=== PATIENT | male | born 1975 | race Caucasian/White ===

== ENCOUNTER 2016-12-18 06:33 | Emergency (ER) | payer SELFPAY ==
[2016-12-18] MEDS ORDERED: Pseudoephedrine 30 MG Tab PO ONE (07:18)
--- NOTE | 2016-12-18 07:22 | EDM.PDOC ---
ED HPI GENERAL MEDICAL PROBLEM - General Chief Complaint: ENT Problem Stated Complaint: EAR PAIN Time Seen by Provider: 12/18/16 07:17 Source of Information: Reports: Patient History Limitations: Reports: No Limitations - History of Present Illness INITIAL COMMENTS - FREE TEXT/NARRATIVE: Feeling at times as if there is water in his ear. Pain is sharp and stabbing intermittently but has a constant ear pressure discomfort as well,and feels partially plugged. He can't lay down to sleep on that side either. He is nose is partially plugged up he is having intermittent nosebleeds as well. No known barotrauma to the ear. He thought it would get better over time but it's been 6 weeks and it has not improved. No previous ear surgery. Onset: Gradual Onset Date: 11/03/16 Duration: Week(s):, Getting Worse Location: Reports: Face (Right ear) Quality: Reports: Ache, Pressure, Sharp, Stabbing Severity: Moderate Improves with: Reports: None Worsens with: Reports: Other Context: Denies: Activity (Lying down.), Exercise, Lifting, Sick Contact, Trauma , Other Associated Symptoms: Reports: Other (Mild sinus congestion with nosebleed from left naris this morning.). 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) Right Ear Pain Score (Numeric/FACES): 8 - Related Data Allergies Allergy/AdvReac Type Severity Reaction Status Date / Time No Known Allergies Allergy Verified 12/18/16 06:42 Home Meds: Home Meds Amoxicillin/Clavulanate K [Augmentin 500 MG\125 MG] 1 tab PO Q12HR #20 tablet [Rx] Back Inflammation Med 0 mg PO DAILY PRN 12/18/16 [History] Htn Med 0 mg PO DAILY 12/18/16 [History] Hydrocort/Neomycin/Polymyxin B [Cortisporin Otic Susp] 2 drop EARRT ASDIRECTED # 1 bottle 12/18/16 [Rx] Loratadine/Pseudoephedrine [Claritin-D 24 Hour Tablet] 1 each PO DAILY #5 tab.er.24h 12/18/16 [Rx] Past Medical History - Past Health History Medical/Surgical History: Denies Medical/Surgical History Cardiovascular History: Reports: Hypertension Musculoskeletal History: Reports: Back Pain, Chronic Social & Family History - Tobacco Use Smoking Status *Q: Current Every Day Smoker Years of Tobacco use: 20 Packs/Tins Daily: 1 - Alcohol Use Days Per Week of Alcohol Use: 7 Number of Drinks Per Day: 2 Total Drinks Per Week: 14 - Recreational Drug Use Recreational Drug Use: No - Living Situation & Occupation Living situation: Reports: Occupation: Employed ED ROS ENT - Review of Systems Review Of Systems: See Below Constitutional: Denies: Fever, Chills, Malaise, Weakness, Fatigue, Decreased Appetite, Weight Loss HEENT: Reports: Ear Pain (Right ear), Sinus Problem Respiratory: Reports: No Symptoms Cardiovascular: Reports: No Symptoms, Blood Pressure Problem (Reports that he doesn't take his blood pressure medication as prescribed. BP is on the very high this morning at 180 05/02/12.) Endocrine: Reports: No Symptoms GI/Abdominal: Reports: No Symptoms : Reports: No Symptoms Musculoskeletal: Reports: No Symptoms, Muscle Pain Skin: Reports: No Symptoms Neurological: Reports: No Symptoms Psychiatric: Reports: No Symptoms Hematologic/Lymphatic: Reports: No Symptoms Immunologic: Reports: No Symptoms ED EXAM, ENT - Physical Exam Exam: See Below Exam Limited By: No Limitations General Appearance: Alert, WD/WN, Mild Distress Ears: Normal External Exam, Hearing Loss, Auricular Tenderness (Right side mild side), Canal Swelling, TM Bulging, TM Dullness, TM Fluid. No: Normal Canal, Mastoid Tenderness, Cerumen Impaction Nose: Dried Blood. No: Septal Performation (Both nasal septum is worse on the left as compared to the right.) Mouth/Throat: Normal Inspection, Normal Gums, Normal Lips, Normal Teeth Course - Vital Signs Last Recorded V/S: Last Vital Signs Temp 36.6 C 12/18/16 06:40 Pulse 102 H 12/18/16 06:40 Resp 16 12/18/16 06:40 BP 183/113 H 12/18/16 06:40 Pulse Ox 95 12/18/16 06:40 - Orders/Labs/Meds Meds: Medications Discontinued Medications Generic Name Dose Route Start Last Admin Trade Name Freq PRN Reason Stop Dose Admin Pseudoephedrine HCl 30 mg 12/18/16 07:18 Sudogest PO 12/18/16 07:19 ONETIME ONE - Radiology Interpretation Free Text/Narrative:: 41-year-old male presents the ED with right ear pain and sense of fullness off and on for the last 6 weeks. On examination I could pull in his ear lobe and portion of the tragus without any pain. However on inspection there is marked inflammation of the right ear canal I otitis externa. The eardrum shows a large bleb with middle ear fluid. Plan he'll be treated with Claritin-D 24-hour release once daily every morning. Should not aggravate his blood pressure very much. I was going to give him pseudoephedrine in the ED but canceled the order because his blood pressure so high. Placed on Augmentin 500 mg/125 mg twice daily for the next 10 days to clear up infection both the ear canal and hopefully help with the middle ear. Cortisporin optic drops to the ear 2 drops every 3 hours today and tomorrow and then 4 times daily for another week clear up ear infection. Motrin 600 mg every 6 hours as needed for pain relief. Departure - Departure Time of Disposition: 07:19 Disposition: Home, Self-Care 01 Condition: Fair Clinical Impression: Otitis externa Qualifiers: Otitis externa type: unspecified type Chronicity: acute Laterality: right Qualified Code(s): H60.501 - Unspecified acute noninfective otitis externa, right ear Eustachian tube obstruction Qualifiers: Laterality: right Qualified Code(s): H68.101 - Unspecified obstruction of Eustachian tube, right ear - Discharge Information Prescriptions: Amoxicillin/Clavulanate K [Augmentin 500 MG\125 MG] 1 tab PO Q12HR #20 tablet Hydrocort/Neomycin/Polymyxin B [Cortisporin Otic Susp] 2 drop EARRT ASDIRECTED # 1 bottle Loratadine/Pseudoephedrine [Claritin-D 24 Hour Tablet] 1 each PO DAILY #5 tab.er.24h Instructions: Otitis Externa, [id number] Referrals: Mago Hackett, [employer] [Primary Care Provider] - Forms: ED Department Discharge Additional Instructions: Evaluation in the ED this am due to Rt ear fullness with mild vertigo or sense of being off balance. Intermittent Rt ear pain. Exam reveals inflamation of the Rt ear canal called otitis externa and middle ear fluid due to obstruction of the drainage from the eustachain tube. Treatment is to be antibiotic Augmentin 500mg twice daily for the enxt 10 days. Claritin D- 24 hr release for the next 5 days once every am. Ear drops to be cortisporin --2 drops to the Rt ear every 4hrs while awake for the neext 3 days then x daily for another 7 days. Suggest follow up with personal physcian or ENT doctor in about 3 weeks time.
== END 2016-12-18 07:34 | disposition home or self-care (01) ==
LOC: JD.ED 06:33
DX: H68.101 Unspecified obstruction of Eustachian tube, right ear (principal); H60.501 Unspecified acute noninfective otitis externa, right ear; I10 Essential (primary) hypertension; F17.210 Nicotine dependence, cigarettes, uncomplicated; Z79.899 Other long term (current) drug therapy
CPT/HCPCS: 99283

== ENCOUNTER 2019-05-10 16:20 | Emergency (ER) | payer BC, OTHER ==
[2019-05-10] MEDS ORDERED: Oxymetazoline 0.05% Nasal Spray 30 ML Bottle NAS ONE (16:54)
[2019-05-10] MEDS ORDERED: Ondansetron 4 MG Tab.DIS PO ONE (16:59)
[2019-05-10] MEDS ORDERED: LORazepam 1 MG Tab PO ONE (16:59)
--- NOTE | 2019-05-10 17:01 | EDM.PDOC ---
ED HPI GENERAL MEDICAL PROBLEM - General Chief Complaint: ENT Problem Stated Complaint: NOSE BLEED AND VOMITING BLOOD Time Seen by Provider: 05/10/19 16:46 Source of Information: Reports: Patient, RN Notes Reviewed - History of Present Illness INITIAL COMMENTS - FREE TEXT/NARRATIVE: 3-year-old male comes in with left-sided nosebleed. Did many hours ago earlier today and has continued much of the day. At times he does get some overflow drainage from the right. He also was having some right-sided nosebleed difficulties yesterday. Not been recently ill. He is insulin-dependent diabetic. He does have history of hypertension and does take daily aspirin. - Related Data Allergies Allergy/AdvReac Type Severity Reaction Status Date / Time No Known Allergies Allergy Verified 10/14/18 17:24 Home Meds: Home Meds Aspirin 162 mg PO DAILY #30 tab.chew 10/15/18 [Rx] Cholecalciferol (Vitamin D3) [Vitamin D3] 5,000 unit PO DAILY #30 tablet [Rx] Past Medical History - Past Health History Medical/Surgical History: Denies Medical/Surgical History Cardiovascular History: Reports: Hypertension Musculoskeletal History: Reports: Back Pain, Chronic Psychiatric History: Reports: Depression - Infectious Disease History Infectious Disease History: Reports: Chicken Pox Social & Family History - Family History Family Medical History: Noncontributory - Tobacco Use Smoking Status *Q: Current Every Day Smoker Years of Tobacco use: 25 Packs/Tins Daily: 2 - Caffeine Use Caffeine Use: Reports: None - Recreational Drug Use Recreational Drug Use: No - Living Situation & Occupation Living situation: Reports: Occupation: Employed ED ROS ENT - Review of Systems Review Of Systems: See Below Constitutional: Denies: Fever, Chills HEENT: Reports: Nosebleed Respiratory: Denies: Shortness of Breath Cardiovascular: Denies: Chest Pain GI/Abdominal: Reports: Nausea. Denies: Abdominal Pain, Vomiting Musculoskeletal: Reports: No Symptoms Skin: Reports: No Symptoms Neurological: Reports: No Symptoms ED EXAM, ENT - Physical Exam Exam: See Below General Appearance: Alert, Anxious, Moderate Distress Nose: Active Bleeding (Left nares with posterior drainage) Mouth/Throat: Other (Posterior throat) Head: Atraumatic Neck: Supple Respiratory/Chest: No Respiratory Distress, Lungs Clear, Normal Breath Sounds Cardiovascular: Tachycardia Neurological: Alert, Oriented, No Motor/Sensory Deficits Skin: Warm, Dry, Normal Color Course - Vital Signs Last Recorded V/S: Last Vital Signs Temp 98 F 05/10/19 16:33 Pulse 110 H 05/10/19 16:33 Resp 16 05/10/19 16:33 BP 147/84 H 05/10/19 17:39 Pulse Ox 93 L 05/10/19 16:33 - Orders/Labs/Meds Orders: Active Orders 24 hr Category Date Time Status Tranexamic Acid [Cyklokapron] 1,000 mg Med 05/10/19 18:45 Active Sodium Chloride 0.9% [Normal Saline] 100 ml IV ONETIME Medication Orders Tranexamic Acid 1,000 mg/ (Sodium Chloride) 110 mls @ 400 mls/hr IV ONETIME OCTAVIO Last Admin: 05/10/19 18:57 Dose: 400 mls/hr Meds: Medications Generic Name Dose Route Start Last Admin Trade Name Freq PRN Reason Stop Dose Admin Tranexamic Acid 1,000 mg/ 110 mls @ 400 mls/hr 05/10/19 18:45 05/10/19 18:57 Sodium Chloride IV 400 mls/hr ONETIME OCTAVIO Administration Discontinued Medications Generic Name Dose Route Start Last Admin Trade Name Freq PRN Reason Stop Dose Admin Cocaine HCl 4 ml 05/10/19 16:55 05/10/19 17:00 Cocaine Hcl TOP 05/10/19 16:56 4 ml ONETIME ONE Administration Lorazepam 1 mg 05/10/19 16:59 05/10/19 17:03 Ativan PO 05/10/19 17:00 1 mg ONETIME ONE Administration Ondansetron HCl 4 mg 05/10/19 16:59 05/10/19 17:03 Zofran Odt PO 05/10/19 17:00 4 mg ONETIME ONE Administration Oxymetazoline HCl 2 ml 05/10/19 16:54 05/10/19 17:00 Nasal Decongestant [place] ANNA 05/10/19 16:55 2 spray ONETIME ONE Administration - Re-Assessments/Exams Free Text/Narrative Re-Assessment/Exam: 05/10/19 19:53 Did have the bleeding stopped after cocaine solution left nares, nitrate cauterization. He was set for discharge and then he did start oozing again less severe from arrival. Further cauterization was done and once again stopped but then once again on re-eval there would be some intermittent oozing. Whenever I did walk into the room and there was oozing he was not holding pressure. He was also doing a lot of sniffing and snorting trying to clear the congestion. It took a while to get him to understand that he needed to hold pressure when this was occurring. I did also soak a cotton ball with some TXA and after that bleeding once again stopped. Again at time of discharge he had started oozing again left nares. I was ready to place a [employer] and it had once again stopped, patient wanted to go home will work with pressure if needed. He will return if this gets worse instead of better as expected. Departure - Departure Time of Disposition: 18:09 Disposition: Home, Self-Care 01 Condition: Fair Clinical Impression: Epistaxis - Discharge Information Instructions: Nosebleed, [id number] Referrals: Rolo Cleveland Jr, MD [Primary Care Provider] - Forms: ED Department Discharge Additional Instructions: Stop aspirin for the next 4 days, Strong pressure for any further bleeding. Vaseline to distal nose twice daily for the next 3 to 4 days. Try very hard not to blow your nose while this is healing. It is recomended you not work tomorrow. Return to ED as needed if symptoms worsening in any way. Sepsis Event Note - Evaluation Sepsis Screening Result: No Definite Risk - Focused Exam Vital Signs: Vital Signs Temp Pulse Resp BP Pulse Ox 05/10/19 17:39 147/84 H 05/10/19 16:33 98 F 110 H 16 158/101 H 93 L Date Exam was Performed: 05/10/19 Time Exam was Performed: 19:53 - My Orders Last 24 Hours: My Active Orders 05/10/19 18:45 Tranexamic Acid [Cyklokapron] 1,000 mg Sodium Chloride 0.9% [Normal Saline] 100 ml IV ONETIME - Assessment/Plan Last 24 Hours: My Active Orders 05/10/19 18:45 Tranexamic Acid [Cyklokapron] 1,000 mg Sodium Chloride 0.9% [Normal Saline] 100 ml IV ONETIME
[2019-05-10] MEDS ORDERED: Tranexamic Acid 1,000 MG in Sodium Chloride 0.9% 100 ML IV SCH (18:45)
== END 2019-05-10 19:48 | disposition home or self-care (01) ==
LOC: JD.ED 16:20
DX: R04.0 Epistaxis (principal); I10 Essential (primary) hypertension; F17.210 Nicotine dependence, cigarettes, uncomplicated; Z79.82 Long term (current) use of aspirin
CPT/HCPCS: 30901; 99283; A9270; J7050; 30905

== ENCOUNTER 2019-05-10 23:03 | Emergency (ER) | payer BC, OTHER ==
--- NOTE | 2019-05-11 00:40 | EDM.PDOC ---
ED HPI GENERAL MEDICAL PROBLEM - General Chief Complaint: ENT Problem Stated Complaint: nose still bleeding Time Seen by Provider: 05/11/19 00:22 Source of Information: Reports: Patient, Family (), Old Records (EC visit 05/10/2019) History Limitations: Reports: No Limitations - History of Present Illness INITIAL COMMENTS - FREE TEXT/NARRATIVE: Mr. Patterson is a very pleasant 43-year-old man who, medical records indicate, was seen in this ED this afternoon after developing left-sided epistaxis this morning. He reported at that time that the bleeding was sometimes severe enough that he had blood coming from his right nostril. He also reports having some right-sided epistaxis yesterday. No history of epistaxis. No history of nasal trauma. In the ED earlier today, the patient was treated with topical cocaine and silver nitrate cauterization, however, before he was discharged, he started bleeding again. A cotton ball soaked in TXA was applied, with initial anticipation that the bleeding was controlled, but before the patient left the ED, his bleeding again restarted. A Rapid Rhino was offered, however, the patient decided to go home and apply pressure, promising to return to the ED if his bleeding got worse. The patient now returns to the ED stating that indeed his bleeding got worse. The patient states that he takes an 81 mg aspirin per day, along with iron sulfate, vitamin D, and 800 mg of ibuprofen once a day. He has a history of hypertension and dyslipidemia, both untreated for the past 6 months, along with diabetes untreated for the past 3 months. He has not been tested for obstructive sleep apnea, however, he does snore at night. Additionally, the patient acknowledges that he drinks 6 drinks per day, occasionally more, and smokes 2 packs of cigarettes per day, since he was 18 years old. No recreational drugs. The patient denies recent fever, chills, cough, dyspnea, chest pain, palpitations, nausea, vomiting, constipation, diarrhea, abdominal pain, urinary symptoms, recent weight gain or weight loss, recent bloody bowel movements or black bowel movements, recent joint aches, headaches, or rashes. Here in the ED, the patient's initial BP is found to be elevated at 163/109, with a HR of 115. His temperature is 96.6. The patient last ate around 13:30 yesterday afternoon, 05/10/2019. The patient's PCP is Dr. Rolo Cleveland. He did not receive an influenza vaccine this season, but agreed to receive one here today. - Related Data Allergies Allergy/AdvReac Type Severity Reaction Status Date / Time No Known Allergies Allergy Verified 10/14/18 17:24 Home Meds: Home Meds Aspirin 162 mg PO DAILY #30 tab.chew 10/15/18 [Rx] Cholecalciferol (Vitamin D3) [Vitamin D3] 5,000 unit PO DAILY #30 tablet [Rx] Past Medical History Cardiovascular History: Reports: High Cholesterol (untreated x 6 mos), Hypertension (untreated x 6 mos) Respiratory History: Reports: Sleep Apnea (likely, not tested) Psychiatric History: Reports: Depression (untreated) Endocrine/Metabolic History: Reports: Diabetes, Type II (untreated x 3 mos), Obesity/BMI 30+ - Infectious Disease History Infectious Disease History: Reports: Chicken Pox - Past Surgical History Musculoskeletal Surgical History: Reports: Other (See Below) (Left hand repair) Social & Family History - Family History Family Medical History: Noncontributory - Tobacco Use Smoking Status *Q: Heavy Tobacco Smoker Years of Tobacco use: 25 Packs/Tins Daily: 2 - Caffeine Use Caffeine Use: Reports: Coffee - Alcohol Use Alcohol Use History: Yes Days Per Week of Alcohol Use: 7 Number of Drinks Per Day: 6 Total Drinks Per Week: 42 Date of Last Drink: 05/10/19 Alcohol Use Frequency: Daily - Recreational Drug Use Recreational Drug Use: No - Living Situation & Occupation Living situation: Reports: , with Spouse 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 ED EXAM, ENT - Physical Exam Exam: See Below Exam Limited By: No Limitations General Appearance: Alert, WD/WN, Anxious Eye Exam: Bilateral Eye: EOMI, Normal Inspection Ears: Normal External Exam, Normal TMs Nose: Active Bleeding (left nostril) Mouth/Throat: Normal Gums, Normal Lips, Normal Teeth, Other (Blood seen running down posterior oropharynx) Head: Atraumatic, Normocephalic Neck: Normal Inspection, Supple, Non-Tender, Full Range of Motion. No: Lymphadenopathy (L), Lymphadenopathy (R) Respiratory/Chest: No Respiratory Distress, Lungs Clear, Normal Breath Sounds, No Accessory Muscle Use Cardiovascular: Normal Peripheral Pulses, No Edema, No Gallop, No JVD, No Murmur , No Rub, Tachycardia GI/Abdominal: Normal Bowel Sounds, Soft, Non-Tender, No Organomegaly, No Distention, No Abnormal Bruit, No Mass (Male) Exam: Deferred Rectal (Males) Exam: Deferred Back: Normal Inspection, Full Range of Motion Extremities: Normal Inspection, Normal Range of Motion, No Pedal Edema, Normal Capillary Refill Neurological: Alert, Oriented, Normal Cognition, No Motor/Sensory Deficits Psychiatric: Anxious Skin: Warm, Dry, Intact, Normal Color, No Rash Course - Vital Signs Last Recorded V/S: Last Vital Signs Temp 35.9 C L 05/10/19 23:28 Pulse 115 H 05/10/19 23:28 Resp 20 05/10/19 23:28 BP 163/109 H 05/10/19 23:28 Pulse Ox 95 05/10/19 23:28 Orthostatic Blood Pressure [ 202/127 Standing] Orthostatic Blood Pressure [ 203/125 Supine] - Orders/Labs/Meds Orders: Active Orders 24 hr Category Date Time Status Influenza Vaccine Charge [RC] .DISCHARGE Care 05/11/19 00:30 Active Orthostatic Vital Signs [RC] STAT Care 05/11/19 01:09 Active Labs: Laboratory Tests 05/11/19 05/11/19 05/11/19 Range/Units 01:00 01:00 01:00 WBC 14.58 H (4.23-9.07) K/mm3 RBC 5.03 (4.63-6.08) M/mm3 Hgb 17.0 (13.7-17.5) gm/dl Hct 49.9 (40.1-51.0) % MCV 99.2 H (79.0-92.2) fl MCH 33.8 H (25.7-32.2) pg MCHC 34.1 (32.2-35.5) g/dl RDW Std Deviation 55.7 H (35.1-43.9) fL Plt Count 281 D (163-337) K/mm3 MPV 10.0 (9.4-12.3) fl Neut % (Auto) 62.5 (34.0-67.9) % Lymph % (Auto) 24.1 (21.8-53.1) % [place] % (Auto) 10.1 (5.3-12.2) % Eos % (Auto) 1.3 (0.8-7.0) Baso % (Auto) 0.6 (0.1-1.2) % Neut # (Auto) 9.11 H (1.78-5.38) K/mm3 Lymph # (Auto) 3.51 (1.32-3.57) K/mm3 [place] # (Auto) 1.47 H (0.30-0.82) K/mm3 Eos # (Auto) 0.19 (0.04-0.54) K/mm3 Baso # (Auto) 0.09 H (0.01-0.08) K/mm3 Manual Slide Review Abnormal smear PT 10.6 (9.7-12.0) SECONDS INR 0.97 APTT 29 (22-31) SECONDS Sodium 136 (136-145) mEq/L Potassium 4.1 (3.5-5.1) mEq/L Chloride 101 (98-107) mEq/L Carbon Dioxide 24 (21-32) mEq/L Anion Gap 15.1 H (5-15) BUN 34 H (7-18) mg/dL Creatinine 1.3 (0.7-1.3) mg/dL Est Cr Clr Drug Dosing 91.81 mL/min Estimated GFR (MDRD) > 60 (>60) mL/min BUN/Creatinine Ratio 26.2 H (14-18) Glucose 158 H (74-106) mg/dL Calcium 8.8 (8.5-10.1) mg/dL Magnesium 1.5 L (1.8-2.4) mg/dl Total Bilirubin 0.4 (0.2-1.0) mg/dL AST 45 H (15-37) U/L ALT 67 H (16-63) U/L Alkaline Phosphatase 78 (46-116) U/L Total Protein 7.0 (6.4-8.2) g/dl Albumin 2.7 L (3.4-5.0) g/dl Globulin 4.3 gm/dL Albumin/Globulin Ratio 0.6 L (1-2) Meds: Medications Discontinued Medications Generic Name Dose Route Start Last Admin Trade Name Freq PRN Reason Stop Dose Admin Hydromorphone HCl 1 mg 05/11/19 01:39 05/11/19 01:42 Dilaudid IVPUSH 05/11/19 01:40 1 mg ONETIME ONE Administration Sodium Chloride 1,000 mls @ 100 mls/hr 05/11/19 01:45 05/11/19 01:42 Normal Saline IV 100 mls/hr ASDIRECTED OCTAVIO Administration Magnesium Sulfate 2 gm/ Premix 50 mls @ 50 mls/hr 05/11/19 01:43 05/11/19 01: 48 IV 05/11/19 02:42 50 mls/hr ONETIME ONE Administration Influenza Virus Vaccine 1 each 05/11/19 00:30 Pharmacy To Dose - Influenza Vaccine IM 05/11/19 00:31 ONETIME ONE Influenza Virus Vaccine 60 mcg 05/11/19 00:45 05/11/19 01:25 Fluzone Quad [id number] Syringe IM 05/11/19 00:46 60 mcg .ONCE ONE Administration Ondansetron HCl 4 mg 05/11/19 01:39 05/11/19 01:42 Zofran IVPUSH 05/11/19 01:40 4 mg ONETIME ONE Administration - Re-Assessments/Exams Free Text/Narrative Re-Assessment/Exam: 05/11/19 00:37 As above, the patient's left nostril has continued to bleed, now considerably worse than it was earlier. I have gone ahead and placed a 5.5 cm Rapid Rhino, and will recheck the air pressure in about 10 minutes. In the meantime, I am having the patient gargle water and spit, to clear his posterior oropharynx of blood. The degree of bleeding from the patient's left nostril is unusual. The patient reports that he drinks 6 drinks per day. He has hypertension and dyslipidemia untreated for the past 6 months, and diabetes untreated for the past 3 months. I am concerned about a coagulopathy. I have therefore ordered a CBC, CMP, magnesium level, and coags. 05/11/19 01:05 Despite placement of the 5.5 cm anterior Rapid Rhino, the patient continued to have a considerable amount of blood in his mouth, suggesting a posterior bleed. I therefore removed the 5.5 cm rapid Rhino and placed a 7.5 cm anterior/ posterior Rapid Rhino. The patient's blood has been drawn. Given the possibility of a posterior arterial bleed, I will have Chelita MASON check orthostatics. 05/11/19 01:21 10 minutes after inserting the 7.5 cm anterior/posterior Rapid Rhino, the patient still has vigorous bleeding as seen by blood in his posterior oropharynx. I replaced his 7.5 cm anterior/posterior Rapid Rhino with a 9 cm posterior Rapid Rhino, however, the patient will require transfer to [place] even if the 9 cm balloon is successful in stopping the bleeding. The patient prefers [facility]. 05/11/19 01:28 The patient is not orthostatic. 05/11/19 01:29 Case discussed with Troy at [facility] at 01:22. Troy then discussed the case with Dr. Monzon, Emergency Physician at [facility], who agreed to accept the patient for transfer to their ED, at 01:28. The patient will be transported by ground ambulance. We will place an IV so that he can receive some IV Dilaudid, IV Zofran, and IV fluid. We will keep him NPO. 05/11/19 01:43 The patient CBC is remarkable for a WBC count elevated at 14.58, with the remainder of his CBC being unremarkable. Manual differential is still pending. His CMP is remarkable for a BUN elevated at 34, but with a Cr normal at 1.3. His blood glucose is elevated at 158, with the remainder of his CMP being unremarkable. His magnesium level is depressed at 1.5. His coags are within normal limits. Based on the above, I have ordered a 2 g Mg-rider. Departure - Departure Time of Disposition: 01:30 Disposition: DC/Tfer to Acute Hospital 02 Condition: Good Clinical Impression: Posterior epistaxis - Discharge Information *PRESCRIPTION DRUG MONITORING PROGRAM REVIEWED*: Not Applicable *COPY OF PRESCRIPTION DRUG MONITORING REPORT IN PATIENT ANGELICA: Not Applicable Referrals: Rolo Cleveland Jr, MD [Primary Care Provider] - Forms: ED Department Discharge Sepsis Event Note - Evaluation Sepsis Screening Result: No Definite Risk - Focused Exam Vital Signs: Vital Signs Temp Pulse Resp BP Pulse Ox 05/10/19 23:28 35.9 C L 115 H 20 163/109 H 95 Date Exam was Performed: 05/11/19 Time Exam was Performed: 04:58 - My Orders Last 24 Hours: My Active Orders 05/11/19 00:30 Influenza Vaccine Charge [RC] .DISCHARGE 05/11/19 01:09 Orthostatic Vital Signs [RC] STAT - Assessment/Plan Last 24 Hours: My Active Orders 05/11/19 00:30 Influenza Vaccine Charge [RC] .DISCHARGE 05/11/19 01:09 Orthostatic Vital Signs [RC] STAT
[2019-05-11] MEDS ORDERED: FLU Vacc QS2019-20(6MOS+)/PF 60 MCG/0.5 ML SYRINGE IM ONE (00:45)
[2019-05-11] MEDS ORDERED: HYDROmorphone 1 MG/ML Syringe IVPUSH ONE (01:39)
[2019-05-11] MEDS ORDERED: Ondansetron 4 MG/2 ML SDV IVPUSH ONE (01:39)
[2019-05-11] MEDS ORDERED: Magnesium Sulfate/Water 2 GM in Premix Bag 1 BAG IV ONE (01:43)
[2019-05-11] MEDS ORDERED: Sodium Chloride 0.9% 1,000 ML IV SCH (01:45)
== END 2019-05-11 01:55 ==
LOC: JD.ED 23:03
DX: R04.0 Epistaxis (principal); I10 Essential (primary) hypertension; E11.9 Type 2 diabetes mellitus without complications; F17.210 Nicotine dependence, cigarettes, uncomplicated; E66.9 Obesity, unspecified; Z68.36 Body mass index [BMI] 36.0-36.9, adult; Z23 Encounter for immunization
CPT/HCPCS: 30905; 36415; 80053; 83735; 85025; 85610; 85730; 90471; 90686; 96374; 96375; 99283; J1170; J2405; J3475; J7030; 99284; G0008

== ENCOUNTER 2019-05-14 23:47 | Emergency (ER) | payer SELFPAY ==
[2019-05-15] MEDS ORDERED: Lidocaine 1% with EPINEPHrine 1:100,000 20 ML MDV INJECT ONE (00:17)
[2019-05-15] MEDS ORDERED: Oxymetazoline 0.05% Nasal Spray 30 ML Bottle NAS ONE (00:18)
--- NOTE | 2019-05-15 00:44 | EDM.PDOC ---
ED HPI GENERAL MEDICAL PROBLEM - General Chief Complaint: ENT Problem Stated Complaint: BLOODY NOSE Time Seen by Provider: 05/15/19 00:07 Source of Information: Reports: Patient History Limitations: Reports: No Limitations - History of Present Illness INITIAL COMMENTS - FREE TEXT/NARRATIVE: The patient presents with a nosebleed to the left nostril. This started tonight. He was seen here on Saturday for the same and he had it cauterized initially and then he had to come back and they put a rhino rocket in. He went to the ENT doctor Dr Solis at [place] and he removed it today and then sent him for labs. He did not get a chance to look in his nostril. His labs as far as he knows looked good. He had no trauma to his nose. He is not on any blood thinners. Onset: Gradual Duration: Day(s): (hours) Severity: Moderate Improves with: Reports: None Worsens with: Reports: None Associated Symptoms: Reports: No Other Symptoms - Related Data Allergies Allergy/AdvReac Type Severity Reaction Status Date / Time No Known Allergies Allergy Verified 05/15/19 00:00 Home Meds: Home Meds Cholecalciferol (Vitamin D3) [Vitamin D3] 5,000 unit PO DAILY #30 tablet [Rx] Past Medical History - Past Health History Medical/Surgical History: Denies Medical/Surgical History HEENT History: Reports: Epistaxis Cardiovascular History: Reports: High Cholesterol, Hypertension Respiratory History: Reports: Sleep Apnea Musculoskeletal History: Reports: Back Pain, Chronic Psychiatric History: Reports: Depression Endocrine/Metabolic History: Reports: Diabetes, Type II, Obesity/BMI 30+ - Infectious Disease History Infectious Disease History: Reports: Chicken Pox - Past Surgical History Musculoskeletal Surgical History: Reports: Other (See Below) (Left hand repair) Social & Family History - Family History Family Medical History: Noncontributory - Tobacco Use Smoking Status *Q: Current Every Day Smoker Years of Tobacco use: 21 Packs/Tins Daily: 1.5 - Caffeine Use Caffeine Use: Reports: Coffee, Energy Drinks - Recreational Drug Use Recreational Drug Use: No - Living Situation & Occupation Living situation: Reports: , with Spouse 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) ED ROS ENT - Review of Systems Review Of Systems: See Below Constitutional: Reports: No Symptoms HEENT: Reports: Nosebleed Respiratory: Reports: No Symptoms Cardiovascular: Reports: No Symptoms Endocrine: Reports: No Symptoms GI/Abdominal: Reports: No Symptoms ED EXAM, ENT - Physical Exam Exam: See Below Exam Limited By: No Limitations General Appearance: Alert, No Apparent Distress Ears: Normal External Exam Nose: Active Bleeding (Left nostrile) Head: Atraumatic, Normocephalic Neck: Normal Inspection Respiratory/Chest: No Respiratory Distress ED ENT PROCEDURES - Epistaxis Procedure Indication: Epistaxis Recent anticoagulants/antiplatlets: No Uncontrolled HTN: No Recent septal/nasal surgery: No Site of bleeding: Left Nare, Posterior Clearing of clots: Patient Blew Nose Topical Meds: Phenylephrine (TXA and afrin) Ice pack to area: No Chemical cautery: Silver Nitrate Topical Anterior Packing: Plain Gauze Strip Course - Vital Signs Last Recorded V/S: Last Vital Signs Temp 98.3 F 05/14/19 23:57 Pulse 103 H 05/14/19 23:57 Resp 16 05/14/19 23:57 BP 170/96 H 05/14/19 23:57 Pulse Ox 97 05/14/19 23:57 - Orders/Labs/Meds Meds: Medications Discontinued Medications Generic Name Dose Route Start Last Admin Trade Name Didi PRN Reason Stop Dose Admin Lidocaine/Epinephrine 20 ml 05/15/19 00:17 05/15/19 00:23 Xylocaine 1% With Epinephrine 1:100,000 INJECT 05/15/19 00:18 20 ml ONETIME ONE Administration Oxymetazoline HCl 1 ml 05/15/19 00:18 05/15/19 00:22 Nasal Decongestant [place] ANNA 05/15/19 00:19 1 ml ONETIME ONE Administration Tranexamic Acid 1,000 mg 05/15/19 00:17 05/15/19 00:23 Cyklokapron IVPUSH 05/15/19 00:18 1,000 mg ONETIME ONE Administration - Re-Assessments/Exams Free Text/Narrative Re-Assessment/Exam: 05/15/19 00:44 I ordered TXA, lidocaine with epinephrine and afrin. I will pack the nose and then take a look and see if I can cauterize anything. 05/15/19 01:43 The bleeding did stop with the medicine packing. I did use silver nitrate on a spot but he bled again so I packed it again. That did stop so I will leave that in and follow up with Dr Solis. Departure - Departure Time of Disposition: 01:50 Disposition: Home, Self-Care 01 Condition: Good Clinical Impression: Epistaxis - Discharge Information *PRESCRIPTION DRUG MONITORING PROGRAM REVIEWED*: Not Applicable *COPY OF PRESCRIPTION DRUG MONITORING REPORT IN PATIENT ANGELICA: Not Applicable Referrals: Rolo Cleveland Jr, MD [Primary Care Provider] - Forms: ED Department Discharge Additional Instructions: Call Dr Solis's office tomorrow. Use the medicine as needed if you bleed again. Use the afrin 2 squirts 2 times per day as needed. Please return if you are worse. Sepsis Event Note - Evaluation Sepsis Screening Result: No Definite Risk - Focused Exam Vital Signs: Vital Signs Temp Pulse Resp BP Pulse Ox 05/14/19 23:57 98.3 F 103 H 16 170/96 H 97 Date Exam was Performed: 05/15/19 Time Exam was Performed: 01:42
== END 2019-05-15 01:55 | disposition home or self-care (01) ==
LOC: JD.ED 23:47
DX: R04.0 Epistaxis (principal); I10 Essential (primary) hypertension; E11.9 Type 2 diabetes mellitus without complications; E66.9 Obesity, unspecified; Z68.39 Body mass index [BMI] 39.0-39.9, adult; F17.210 Nicotine dependence, cigarettes, uncomplicated
CPT/HCPCS: 30901; 99283; A9270; 99282

== ENCOUNTER 2019-06-25 05:26 | Emergency (ER) | payer SELFPAY ==
[2019-06-25] MEDS ORDERED: Acetaminophen/HYDROcodone 325-5 MG Tab PO ONE (05:55)
--- NOTE | 2019-06-25 06:00 | EDM.PDOC ---
ED HPI GENERAL MEDICAL PROBLEM - General Chief Complaint: Lower Extremity Injury/Pain Stated Complaint: GOUT IN KNEE AND ANKLE PAIN Time Seen by Provider: 06/25/19 05:40 Source of Information: Reports: Patient History Limitations: Reports: No Limitations - History of Present Illness INITIAL COMMENTS - FREE TEXT/NARRATIVE: Mr. Patterson is a very pleasant 43-year-old man with a past medical history significant for untreated hypertension, dyslipidemia, depression, and diabetes, as well as suspected and untreated obstructive sleep apnea, who now presents to the ED stating that he is suffering from a flare of gout in his left knee and left ankle since 06/21/2019. The patient has never been formally diagnosed with gout, rather, the diagnosis was simply suspected. He has never had a physician aspirated an inflamed joint. He states that in the past he has had similar painful flares in each of his great toes, his right knee, and right ankle. Since Saturday, the patient has been drinking tart moon juice, apple cider vinegar, and tumeric, with no relief in his symptoms. He has not taken any ibuprofen, as he had a bad nosebleed last month, and was afraid that ibuprofen might cause his nose to bleed again. He is ambulating with crutches due to the pain. 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 Other than his left lower extremity pain and swelling, the patient denies recent fever, chills, sore throat, ear pain, nasal or sinus congestion, cough, dyspnea, chest pain, palpitations, nausea, vomiting, constipation, diarrhea, abdominal pain, urinary symptoms, recent weight gain or weight loss, recent bloody bowel movements or black bowel movements, headaches, or rashes. Here in the ED, the patient's initial BP is found to be significantly elevated at 195/115. He is otherwise hemodynamically stable, afebrile, saturating 95% on room air. He states that his Accu-Chek last week was 156. The patient's PCP is Dr. Rolo Cleveland. He received an influenza vaccine on 05/10/2019. Left Knee Pain Score (Numeric/FACES): 10 - Related Data Allergies Allergy/AdvReac Type Severity Reaction Status Date / Time No Known Allergies Allergy Verified 06/25/19 05:38 Home Meds: Home Meds Cholecalciferol (Vitamin D3) [Vitamin D3] 5,000 unit PO DAILY #30 tablet [Rx] Acetaminophen/HYDROcodone [Piqua 325-5 MG] 1 - 2 tab PO Q6H PRN #14 tablet 06/24 [Rx] Past Medical History Cardiovascular History: Reports: High Cholesterol (untreated), Hypertension ( untreated) Respiratory History: Reports: Sleep Apnea (suspected, not tested or treated) Psychiatric History: Reports: Depression (untreated) Endocrine/Metabolic History: Reports: Diabetes, Type II (untreated), Obesity/ BMI 30+ (untreated) - Infectious Disease History Infectious Disease History: Reports: Chicken Pox - Past Surgical History Musculoskeletal Surgical History: Reports: Other (See Below) (Left hand repair) Social & Family History - Family History Family Medical History: Noncontributory - Tobacco Use Smoking Status *Q: Heavy Tobacco Smoker Years of Tobacco use: 26 Packs/Tins Daily: 2 - Caffeine Use Caffeine Use: Reports: Coffee - Alcohol Use Alcohol Use History: Yes Alcohol Use Frequency: Daily - Recreational Drug Use Recreational Drug Use: No - Living Situation & Occupation Living situation: Reports: , with Spouse 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 ED EXAM, GENERAL - Physical Exam Exam: See Below Exam Limited By: No Limitations General Appearance: Alert, WD/WN, No Apparent Distress Extremities: Other (There is visible swelling to the patient's left knee, leg, and ankle, when compared to the right. The patient reports significant tenderness to palpation anywhere around the knee or ankle. He has pain with any movement of the knee, although some movement of the ankle is tolerable. While swollen, there is no calor to either joint. Additionally, there is 2+ pitting edema to the left barnett, which is not present on the right. Neurovascular status of the left lower extremity is intact.) Course - Vital Signs Last Recorded V/S: Last Vital Signs Temp 36.2 C 06/25/19 05:34 Pulse 91 06/25/19 05:34 Resp 20 06/25/19 05:34 BP 195/115 H 06/25/19 05:34 Pulse Ox 95 06/25/19 05:34 - Orders/Labs/Meds Meds: Medications Discontinued Medications Generic Name Dose Route Start Last Admin Trade Name Freq PRN Reason Stop Dose Admin Hydrocodone Bitart/Acetaminophen 2 tab 06/25/19 05:55 06/25/19 06:02 Piqua 325-5 Mg PO 06/25/19 05:56 2 tab ONETIME ONE Administration Ibuprofen 800 mg 06/25/19 06:03 Motrin PO 06/25/19 06:04 ONETIME ONE - Re-Assessments/Exams Free Text/Narrative Re-Assessment/Exam: 06/25/19 05:55 As above, the patient has severe pain to his left knee and ankle, and his entire leg, including his knee, barnett, and ankle are swollen, although no calor is noted. It is possible that the patient is suffering from an acute flare of gout, however, the patient has not actually been diagnosed with gout. I suggested to the patient, and he agreed, that now is a good time to have a formal evaluation to see if he has gout, by aspirating an inflamed joint and having the fluid analyzed. This, however, in order to avoid an accidental infection of the joint, is best done by an Orthopedic Surgeon, therefore, for today's purposes, the patient will be treated with Piqua, and I will refer him to Dr. George, who he can likely see today or tomorrow. Departure - Departure Time of Disposition: 06:00 Disposition: Home, Self-Care 01 Condition: Good Clinical Impression: Arthritis of left lower extremity - Discharge Information *PRESCRIPTION DRUG MONITORING PROGRAM REVIEWED*: Not Applicable *COPY OF PRESCRIPTION DRUG MONITORING REPORT IN PATIENT ANGELICA: Not Applicable Prescriptions: Acetaminophen/HYDROcodone [Piqua 325-5 MG] 1 - 2 tab PO Q6H PRN #14 tablet PRN Reason: Pain (Severe 7-10) Referrals: Rolo Cleveland Jr, MD [Primary Care Provider] - Jonny George MD [Physician] - Forms: ED Department Discharge Additional Instructions: You were seen in the emergency room for severe left knee and ankle pain since Saturday. On examination, you have swelling and tenderness to your left knee and left ankle, as well as swelling to your left leg. It is possible that your symptoms are due to a flare of gout, however, other medical conditions could also be responsible. You have been started on the anti-inflammatory medicine ibuprofen. We recommend that you take [id number] ibuprofen, 3 to 4 tablets (600-800 mg) every 8 hours, with food, [id number] for the next few days. You have also been started on the pain reliever Piqua, and a prescription for Piqua has been provided to you. Take 1 to 2 tablets of Piqua up to every 6 hours, as needed for pain not relieved by ibuprofen. Follow-up with the Orthopedic Surgeon Dr. Jonny George at the next available appointment. Make sure that the appliance tester understands that you are following up from the ER, and that you need to be seen in the next day or two. We agree with your decision to follow-up with your PCP, Dr. Rolo Cleveland, to address your hypertension, dyslipidemia, obstructive sleep apnea, depression, and diabetes. If any other problems, please do not hesitate to return to the ER. Sepsis Event Note - Evaluation Sepsis Screening Result: No Definite Risk - Focused Exam Vital Signs: Vital Signs Temp Pulse Resp BP Pulse Ox 06/25/19 05:34 36.2 C 91 20 195/115 H 95 Date Exam was Performed: 06/25/19 Time Exam was Performed: 06:11
[2019-06-25] MEDS ORDERED: Ibuprofen 800 MG Tab PO ONE (06:03)
== END 2019-06-25 06:20 | disposition home or self-care (01) ==
LOC: JD.ED 05:26
DX: M17.12 Unilateral primary osteoarthritis, left knee (principal); M19.072 Primary osteoarthritis, left ankle and foot; I10 Essential (primary) hypertension; E11.9 Type 2 diabetes mellitus without complications; F17.210 Nicotine dependence, cigarettes, uncomplicated; E66.9 Obesity, unspecified; Z68.39 Body mass index [BMI] 39.0-39.9, adult
CPT/HCPCS: 99283; A9270

== ENCOUNTER 2020-09-14 07:10 | Emergency (ER) | payer SELFPAY ==
--- NOTE | 2020-09-14 07:19 | EDM.PDOC ---
ED HPI GENERAL MEDICAL PROBLEM - General Chief Complaint: Chest Pain Stated Complaint: CHEST PAIN Time Seen by Provider: 09/14/20 07:19 - History of Present Illness INITIAL COMMENTS - FREE TEXT/NARRATIVE: 44-year-old male presents the emergency room with chest pain. Chest pain started around 530 this morning. Describes it as substernal then it radiated into his back and into his neck. He has some shortness of breath associated with it. At this time now patient has some mild chest discomfort that he describes as a pressure. He still has some back pain and neck pain. The patient states he has been taking his lisinopril he is quite hypertensive. He is not taking his diabetes medication and he is taking his gout medication. Patient has no point prior history of heart problems other than his hypertension he is a poorly controlled type II diabetic he smokes 1+ pack of cigarettes a day. And he is obese. Patient is not aware of a family history of coronary artery disease or other heart problems. Chest Pain Score (Numeric/FACES): 5 - Related Data Allergies Allergy/AdvReac Type Severity Reaction Status Date / Time No Known Allergies Allergy Verified 09/14/20 07:19 Home Meds: Home Meds Cholecalciferol (Vitamin D3) [Vitamin D3] 5,000 unit PO DAILY #30 tablet 10/15/18 [Rx] Allopurinol [Zyloprim] 300 mg PO DAILY 09/14/20 [History] Ferrous Sulfate [Iron] 325 mg PO DAILY 09/14/20 [History] Hydrochlorothiazide/Lisinopril [Lisinopril-HCTZ 20-12.5 MG] 1 tab PO DAILY 09/14/20 [History] Past Medical History - Past Health History Medical/Surgical History: Denies Medical/Surgical History HEENT History: Reports: Epistaxis Cardiovascular History: Reports: High Cholesterol (untreated), Hypertension (untreated) Respiratory History: Reports: Sleep Apnea (suspected, not tested or treated) Musculoskeletal History: Reports: Arthritis, Back Pain, Chronic Psychiatric History: Reports: Depression (untreated) Endocrine/Metabolic History: Reports: Diabetes, Type II (untreated), Obesity/BMI 30+ (untreated) - Infectious Disease History Infectious Disease History: Reports: Chicken Pox - Past Surgical History Musculoskeletal Surgical History: Reports: Other (See Below) (Left hand repair) Social & Family History - Family History Family Medical History: No Pertinent Family History - Caffeine Use Caffeine Use: Reports: Coffee - Living Situation & Occupation Living situation: Reports: , with Spouse 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 Denies: Abdominal Pain, Constipation, Diarrhea, Nausea, Vomiting : Reports: No Symptoms Musculoskeletal: Reports: No Symptoms Skin: Reports: No Symptoms Neurological: Reports: No Symptoms ED EXAM, GENERAL - Physical Exam Exam: See Below Exam Limited By: No Limitations General Appearance: Alert, No Apparent Distress, Other (He is not diaphoretic blood pressure is elevated) Head: Atraumatic, Normocephalic Neck: Normal Inspection, Supple, Non-Tender, Full Range of Motion Respiratory/Chest: No Respiratory Distress, Lungs Clear, Normal Breath Sounds Cardiovascular: Regular Rate, Rhythm, No Edema, No Murmur GI/Abdominal: Normal Bowel Sounds, Soft, Non-Tender Back Exam: Other (Palpation of the lower neck and upper back reveals some muscle tightness. This is somewhat tender with palpation and mimics the pain that he is complaining about at this time.) Extremities: Pedal Edema (Trace pedal edema) Neurological: Alert, Oriented, Normal Cognition #1 Interpretation EKG Date: 09/14/20 Rhythm: NSR Rate (Beats/Min): 97 [place]: LAD-Left [place] Deviation (Borderline) P-Wave: Present QRS: Other (Q waves inferior and anterior) ST-T: Normal QT: Normal Comparison: NA - No Prior EKG EKG Interpretation Comments: Abnormal EKG Q waves suggestive of old anterior and possible inferior infarcts Course - Vital Signs Last Recorded V/S: Last Vital Signs Temp 36.2 C 09/14/20 07:16 Pulse 95 09/14/20 07:16 Resp 21 H 09/14/20 07:16 BP 178/106 H 09/14/20 07:57 Pulse Ox 96 09/14/20 07:16 - Orders/Labs/Meds Orders: Active Orders 24 hr Category Date Time Status Blood Glucose Check, Bedside [RC] ONETIME Care 09/14/20 07:48 Active EKG Documentation Completion [RC] ASDIRECTED Care 09/14/20 07:40 Active Sodium Chloride 0.9% [Normal Saline] 100 ml Med 09/14/20 08:30 Active IV ASDIRECTED Sodium Chloride 0.9% [Saline Flush] Med 09/14/20 08:25 Active 10 ml FLUSH ONETIME PRN EKG 12 Lead [EK] Stat Ther 09/14/20 07:40 Ordered Medication Orders Sodium Chloride (Normal Saline) 100 mls @ 75 mls/hr IV ASDIRECTED OCTAVIO Last Admin: 09/14/20 09:09 Dose: 75 mls/hr Documented by: JAYJAY Sodium Chloride (Sodium Chloride 0.9% 10 Ml Syringe) 10 ml FLUSH ONETIME PRN PRN Reason: IV FLUSH Last Admin: 09/14/20 09:09 Dose: 10 ml Documented by: JAYJAY Labs: Laboratory Tests 09/14/20 09/14/20 09/14/20 Range/Units 07:25 07:25 07:25 WBC 8.70 (4.23-9.07) K/mm3 RBC 5.12 (4.63-6.08) M/mm3 Hgb 17.7 H (13.7-17.5) gm/dl Hct 52.5 H (40.1-51.0) % MCV 102.5 H D (79.0-92.2) fl MCH 34.6 H (25.7-32.2) pg MCHC 33.7 (32.2-35.5) g/dl RDW Std Deviation 54.2 H (35.1-43.9) fL Plt Count 195 D (163-337) K/mm3 MPV 10.2 (9.4-12.3) fl Neut % (Auto) 59.2 (34.0-67.9) % Lymph % (Auto) 22.8 (21.8-53.1) % [place] % (Auto) 10.7 (5.3-12.2) % Eos % (Auto) 2.5 (0.8-7.0) Baso % (Auto) 1.1 (0.1-1.2) % Neut # (Auto) 5.15 (1.78-5.38) K/mm3 Lymph # (Auto) 1.98 (1.32-3.57) K/mm3 [place] # (Auto) 0.93 H (0.30-0.82) K/mm3 Eos # (Auto) 0.22 (0.04-0.54) K/mm3 Baso # (Auto) 0.10 H (0.01-0.08) K/mm3 Manual Slide Review Abnormal smear PT 10.1 (9.7-12.0) SECONDS INR 0.94 APTT 28.3 (21.7-31.4) SECONDS D-Dimer, Quantitative 0.65 H (0.19-0.50) mg/L Sodium 140 (136-145) mEq/L Potassium 4.2 (3.5-5.1) mEq/L Chloride 104 (98-107) mEq/L Carbon Dioxide 25 (21-32) mEq/L Anion Gap 15.2 H (5-15) BUN 14 (7-18) mg/dL Creatinine 1.4 H (0.7-1.3) mg/dL Est Cr Clr Drug Dosing 84.39 mL/min Estimated GFR (MDRD) 56 (>60) mL/min BUN/Creatinine Ratio 10.0 L (14-18) Glucose 146 H (70-99) mg/dL POC Glucose (70-99) mg/dL Calcium 8.5 (8.5-10.1) mg/dL Total Bilirubin 0.4 (0.2-1.0) mg/dL AST TNP ALT TNP Alkaline Phosphatase 116 (46-116) U/L Troponin I < 0.017 (0.00-0.056) ng/mL Total Protein 7.2 (6.4-8.2) g/dl Albumin 2.4 L (3.4-5.0) g/dl Globulin 4.8 gm/dL Albumin/Globulin Ratio 0.5 L (1-2) 09/14/20 09/14/20 Range/Units 07:45 09:53 WBC (4.23-9.07) K/mm3 RBC (4.63-6.08) M/mm3 Hgb (13.7-17.5) gm/dl Hct (40.1-51.0) % MCV (79.0-92.2) fl MCH (25.7-32.2) pg MCHC (32.2-35.5) g/dl RDW Std Deviation (35.1-43.9) fL Plt Count (163-337) K/mm3 MPV (9.4-12.3) fl Neut % (Auto) (34.0-67.9) % Lymph % (Auto) (21.8-53.1) % [place] % (Auto) (5.3-12.2) % Eos % (Auto) (0.8-7.0) Baso % (Auto) (0.1-1.2) % Neut # (Auto) (1.78-5.38) K/mm3 Lymph # (Auto) (1.32-3.57) K/mm3 [place] # (Auto) (0.30-0.82) K/mm3 Eos # (Auto) (0.04-0.54) K/mm3 Baso # (Auto) (0.01-0.08) K/mm3 Manual Slide Review PT (9.7-12.0) SECONDS INR APTT (21.7-31.4) SECONDS D-Dimer, Quantitative (0.19-0.50) mg/L Sodium (136-145) mEq/L Potassium (3.5-5.1) mEq/L Chloride (98-107) mEq/L Carbon Dioxide (21-32) mEq/L Anion Gap (5-15) BUN (7-18) mg/dL Creatinine (0.7-1.3) mg/dL Est Cr Clr Drug Dosing mL/min Estimated GFR (MDRD) (>60) mL/min BUN/Creatinine Ratio (14-18) Glucose (70-99) mg/dL POC Glucose 145 H (70-99) mg/dL Calcium (8.5-10.1) mg/dL Total Bilirubin (0.2-1.0) mg/dL AST ALT Alkaline Phosphatase (46-116) U/L Troponin I < 0.017 (0.00-0.056) ng/mL Total Protein (6.4-8.2) g/dl Albumin (3.4-5.0) g/dl Globulin gm/dL Albumin/Globulin Ratio (1-2) Meds: Medications Generic Name Dose Route Start Last Admin Trade Name Freq PRN Reason Stop Dose Admin Sodium Chloride 100 mls @ 75 mls/hr 09/14/20 08:30 09/14/20 09:09 Normal Saline IV 75 mls/hr ASDIRECTED OCTAVIO Administration Sodium Chloride 10 ml 09/14/20 08:25 09/14/20 09:09 Sodium Chloride 0.9% 10 Ml Syringe FLUSH 10 ml ONETIME PRN Administration IV FLUSH Discontinued Medications Generic Name Dose Route Start Last Admin Trade Name Didi PRN Reason Stop Dose Admin Aspirin 324 mg 09/14/20 07:33 09/14/20 07:46 Aspirin 81 Mg Tab.Chew PO 09/14/20 07:34 324 mg ONETIME ONE Administration Sodium Chloride 500 mls @ 500 mls/hr 09/14/20 08:22 09/14/20 09:15 Normal Saline IV 09/14/20 09:21 500 mls/hr .BOLUS ONE Administration Sodium Chloride Confirm 09/14/20 09:12 Normal Saline Administered 09/14/20 09:13 Dose 500 mls @ as directed .ROUTE .STK-MED ONE Iopamidol 100 ml 09/14/20 08:25 09/14/20 09:09 Iopamidol 755 Mg/Ml 100 Ml Bottle IVPUSH 09/14/20 08:26 100 ml ONETIME ONE Administration Nitroglycerin 0.4 mg 09/14/20 07:33 09/14/20 07:57 Nitroglycerin 0.4 Mg Tab.Sl SL 0.4 mg Q5M PRN Administration Chest Pain - Re-Assessments/Exams Free Text/Narrative Re-Assessment/Exam: 09/14/20 08:24 D-dimer is elevated. Will give gentle fluid bolus and check a CTA creatinine 1.4 09/14/20 08:25 Some lab results could be skewed as the patient appears to be quite lipemic 09/14/20 09:42 Patient is doing better at this time his blood pressure is a little better. Patient states that he is here to be out of his blood pressure medicine in another 4 days so were trying to clarify exactly what he is taking. Patient agrees to follow-up with a regular healthcare provider this next week. Patient did have a negative CTA, no PE nothing acute. We will check a second troponin. At this point his heart score is a 3 one-point for moderate suspicion history and 2 points for risk factors hypertension, smoker, diabetes and apparent hyperlipidemia. 09/14/20 11:13 Second troponin is negative I did discuss the implications of the heart score and after discussion and the patient had a chance for his own input he elects to go home. I cannot find his blood pressure medication so I do not do not know what to refill patient will try to get in the clinic this week before he runs out and bring this in to get filled. Departure - Departure Time of Disposition: 11:14 Disposition: Home, Self-Care 01 Clinical Impression: Chest pain, Hypertension - Discharge Information Referrals: PCP,None [Primary Care Provider] - Forms: ED Department Discharge Additional Instructions: Return to the emergency room with any questions problems or worsening symptoms. Take a baby aspirin 81 mg daily. Follow-up in the hospital clinic this week seeing get your blood pressure medication refilled. Also discuss getting a heart stress test done in the future and having all your medical issues addressed. Call today for an appointment [phone] Sepsis Event Note (ED) - Focused Exam Vital Signs: Vital Signs Temp Pulse Resp BP BP Pulse Ox 09/14/20 07:57 178/106 H 09/14/20 07:52 172/102 H 09/14/20 07:47 191/118 H 09/14/20 07:16 36.2 C 95 21 H 211/122 H 96 - My Orders Last 24 Hours: My Active Orders 09/14/20 07:40 EKG Documentation Completion [RC] ASDIRECTED EKG 12 Lead [EK] Stat 09/14/20 07:48 Blood Glucose Check, Bedside [RC] ONETIME 09/14/20 08:25 Sodium Chloride 0.9% [Saline Flush] 10 ml FLUSH ONETIME PRN 09/14/20 08:30 Sodium Chloride 0.9% [Normal Saline] 100 ml IV ASDIRECTED - Assessment/Plan Last 24 Hours: My Active Orders 09/14/20 07:40 EKG Documentation Completion [RC] ASDIRECTED EKG 12 Lead [EK] Stat 09/14/20 07:48 Blood Glucose Check, Bedside [RC] ONETIME 09/14/20 08:25 Sodium Chloride 0.9% [Saline Flush] 10 ml FLUSH ONETIME PRN 09/14/20 08:30 Sodium Chloride 0.9% [Normal Saline] 100 ml IV ASDIRECTED
[2020-09-14] MEDS ORDERED: Aspirin 81 MG Tab.Chew PO ONE (07:33)
[2020-09-14] MEDS: Nitroglycerin 0.4 MG Tab.SL SL PRN ×3 (07:47→07:57)
[2020-09-14] MEDS ORDERED: Sodium Chloride 0.9% 500 ML IV ONE (08:22)
[2020-09-14] MEDS ORDERED: Sodium Chloride 0.9% 10 ML Syringe FLUSH PRN (08:25)
[2020-09-14] MEDS ORDERED: Iopamidol 755 Mg/ML 100 ML Bottle IVPUSH ONE (08:25)
[2020-09-14] MEDS ORDERED: Sodium Chloride 0.9% 100 ML IV SCH (08:30)
--- NOTE | 2020-09-14 08:38 | CR ---
Chest: Portable view of the chest was obtained. Comparison: No prior chest imaging is available. Heart size is normal. Upper mediastinum is within normal limits. Lungs are clear with no acute parenchymal change. No acute osseous abnormality is appreciated. Impression: 1. Nothing acute is seen on portable chest x-ray. Diagnostic code #1
[2020-09-14] MEDS ORDERED: Sodium Chloride 0.9% 500 ML ONE (09:12)
--- NOTE | 2020-09-14 09:28 | CT ---
CT chest Technique: Multiple axial sections through the chest were obtained. Intravenous contrast was utilized. Study has been performed as a pulmonary angiogram protocol. Comparison: No prior chest CT study is available, prior chest x-ray performed earlier on the same day (7:40 AM). Findings: Pulmonary arteries are well opacified. No filling defects are seen to indicate pulmonary embolism. Thoracic aorta shows no aneurysm. No mediastinal adenopathy is seen. No axillary adenopathy is seen. No pericardial thickening is appreciated. Visualized upper abdominal structures show no acute abnormality. Lung window settings were reviewed. Nothing acute is seen within the lung parenchyma. No pleural effusions or pneumothorax are seen. Bone window settings were reviewed. Very slight degenerative change is scattered within the spine. No acute osseous abnormality is appreciated. Old healed fracture is noted within the lateral left seventh rib. Impression: 1. No findings of pulmonary embolism. 2. Old left lower rib fracture which appears healed. 3. Nothing acute is appreciated. Diagnostic code #2
== END 2020-09-14 11:30 | disposition home or self-care (01) ==
LOC: JD.ED 07:10
DX: R07.2 Precordial pain (principal); R07.89 Other chest pain; I10 Essential (primary) hypertension; E11.9 Type 2 diabetes mellitus without complications; F17.210 Nicotine dependence, cigarettes, uncomplicated; E66.9 Obesity, unspecified; Z68.41 Body mass index [BMI] 40.0-44.9, adult; E78.00 Pure hypercholesterolemia, unspecified; Z79.899 Other long term (current) drug therapy
CPT/HCPCS: 36415; 71045; 71275; 80053; 82947; 84484; 85025; 85379; 85610; 85730; 93005; 99285; A9270; J7030; Q9967; 93010; 99283

== ENCOUNTER 2022-05-25 11:09 | Emergency (ER) | payer BC, OTHER ==
[2022-05-25] MEDS ORDERED: Sodium Chloride 0.9% 10 ML Syringe FLUSH PRN (11:21)
[2022-05-25] MEDS ORDERED: Sodium Chloride 0.9% 1,000 ML IV ONE (11:46)
[2022-05-25] MEDS ORDERED: Bumetanide 1 MG/4 ML MDV IVPUSH ONE (13:23)
[2022-05-25] MEDS ORDERED: Sodium Polystyrene Sulfonate 15 GM/60 ML Susp 60 ML Bot PO ONE (13:37)
[2022-05-25] MEDS ORDERED: Sodium Chloride 0.9% 500 ML IV ONE (13:38)
== END 2022-05-25 15:15 | disposition home or self-care (01) ==
LOC: JD.ED 11:09
DX: E87.5 Hyperkalemia (principal); N28.9 Disorder of kidney and ureter, unspecified; E11.9 Type 2 diabetes mellitus without complications; I10 Essential (primary) hypertension; E66.9 Obesity, unspecified; Z72.0 Tobacco use; Z68.41 Body mass index [BMI] 40.0-44.9, adult
CPT/HCPCS: 36415; 80053; 81001; 82570; 83735; 84156; 84484; 85025; 93005; 96361; 96374; 99283; A9270; J3490; J7030; J7040; 93010

== ENCOUNTER 2022-06-15 05:49 | Emergency (ER) | payer BC | END 2022-06-15 08:53 | disposition home or self-care (01) | LOC: JD.ED 05:49 | DX: M10.9 Gout, unspecified (principal); N19 Unspecified kidney failure; E78.00 Pure hypercholesterolemia, unspecified; I10 Essential (primary) hypertension; E11.9 Type 2 diabetes mellitus without complications; E66.9 Obesity, unspecified; Z72.0 Tobacco use; Z79.899 Other long term (current) drug therapy; Z68.36 Body mass index [BMI] 36.0-36.9, adult | CPT/HCPCS: 36415; 80048; 84550; 85025; 99283; 99285 ==

== ENCOUNTER 2023-04-06 12:38 | Emergency (ER) | payer BC, OTHER ==
[2023-04-06] MEDS: Sodium Chloride 0.9% 10 ML Syringe FLUSH PRN (13:23)
[2023-04-06 13:29] LABS: BASOPHILS ABSOLUTE AUTO 0.1 K/mm3 (0.0-0.2); BASOPHILS PERCENT AUTO 0.8 % (0.0-1.0); EOSINOPHILS ABSOLUTE AUTO 0.2 K/mm3 (0.0-0.4); EOSINOPHILS PERCENT AUTO 1.6 % (0.0-6.0); HEMOGLOBIN 11.7 gm/dl (14.0-18.0); IMMATURE GRAN ABSOLUTE AUTO 0.25 K/mm3 (0.00-0.05); IMMATURE GRAN PERCENT AUTO 2.1 % (0.0-0.4); LYMPHOCYTES ABSOLUTE AUTO 1.1 K/mm3 (1.0-4.8); LYMPHOCYTES PERCENT AUTO 9.5 % (24.0-44.0); MEAN CORPUSCULAR HEMOGLOBIN 34.1 pg (28.0-32.0); MEAN CORPUSCULAR HGB CONC 32.5 g/dl (32.0-36.0); MEAN PLATELET VOLUME 9.4 fl (9.4-12.4); MONOCYTES ABSOLUTE AUTO 0.6 K/mm3 (0.0-0.8); MONOCYTES PERCENT AUTO 5.2 % (0.0-8.0); NEUTROPHILS ABSOLUTE AUTO 9.7 K/mm3 (1.8-7.7); NEUTROPHILS PERCENT AUTO 80.8 % (41.0-71.0); NRBC ABSOLUTE 0.07 (0.00-0.02); NRBC PERCENT 0.6 % (0.0-0.2); PLATELET COUNT,PLT 255 K/mm3 (150-400); RED BLOOD CELL COUNT 3.43 M/mm3 (4.52-5.90); WHITE BLOOD CELL COUNT,WBC 11.96 K/mm3 (3.9-11.3)
[2023-04-06 13:46] LABS: A/G RATIO 0.6 (1-2); ALBUMIN 2.8 g/dl (3.4-5.0); ANION GAP 18.3 (5-15); BILIRUBIN TOTAL 0.4 mg/dL (0.2-1.0); BUN/CREATININE RATIO 6.8 (14-18); CALCIUM 8.2 mg/dL (8.5-10.1); EST CRCL DRUG DOSING (CG) 16.84 mL/min; MAGNESIUM 1.9 mg/dL (1.8-2.4); POTASSIUM,K 5.3 mEq/L (3.5-5.1); PROTEIN TOTAL,TP 7.3 g/dl (6.4-8.2)
[2023-04-06 13:47] LABS: CREATININE 6.8 mg/dL (0.7-1.3)
[2023-04-06] MEDS: Sodium Chloride 0.9% 1,000 ML IV STA (14:21)
[2023-04-06] MEDS: Metoprolol Tartrate 5 MG/5 ML SDV IVPUSH ONE ×2 (14:22→15:09)
[2023-04-06 14:37] LABS: APPEARANCE,URINE CLEAR (Clear); BILIRUBIN,URINE NEGATIVE (Negative); COLOR,URINE YELLOW (Yellow); GLUCOSE,URINE TRACE (Negative); KETONES,URINE NEGATIVE (Negative); LEUKOCYTE ESTERASE,URINE NEGATIVE (Negative); NITRITE,URINE NEGATIVE (Negative); OCCULT BLOOD,URINE 2+ (Negative); PH,URINE 6.5 (5.0-8.0); PROTEIN,URINE 3+ (Negative); UROBILINOGEN,URINE 0.2 (0.2-1.0)
[2023-04-06 14:45] LABS: BACTERIA,URINE FEW /hpf (FEW); SQUAMOUS EPITHELIAL CELLS,UR 0-5 /hpf (0-5)
[2023-04-06 14:46] LABS: MUCUS,URINE FEW /hpf (FEW)
[2023-04-06] MEDS: Labetalol 100 MG/20 ML MDV IVPUSH ONE ×2 (16:23→18:01)
[2023-04-06] MEDS: Nicotine 21 MG/24 Hr Patch TRDERM ONE (18:01)
== END 2023-04-06 18:15 ==
LOC: JD.ED 12:38
DX: N17.9 Acute kidney failure, unspecified (principal); I10 Essential (primary) hypertension; E66.9 Obesity, unspecified; E11.9 Type 2 diabetes mellitus without complications; F17.210 Nicotine dependence, cigarettes, uncomplicated; Z79.899 Other long term (current) drug therapy; Z68.38 Body mass index [BMI] 38.0-38.9, adult
CPT/HCPCS: 36415; 51798; 74176; 80053; 81001; 83735; 85025; 96361; 96374; 96375; 96376; 99284; A9270; J1921; J3490; J7030; 99285